=== PATIENT | male | born 1945 | race Caucasian/White ===

== ENCOUNTER 2017-09-10 08:17 | Outpatient (CLI) | payer MEDICARE, OTHER ==
--- NOTE | 2017-09-10 12:40 | MRI ---
MRI BRAIN AND INTERNAL AUDITORY CANALS WITH AND WITHOUT CONTRAST: DATE: 09/10/2017 HISTORY: A 71-year-old female. 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 COMPARISON: 08/21/2016 TECHNIQUE: Multiple sequences obtained in axial, sagittal, and coronal planes; both whole brain images and thin slices through the IAC's, pre and post IV injection of gadolinium-based contrast agent: MultiHance 1 3 mL. FINDINGS: The heterogeneously enhancing ice [id number] shaped extraaxial mass at the left cerebellopontine a ngle, extending into the left internal auditory canal, has not significantly changed in size. Measur ements are approximately 1.8 x 1.3 x 1.2 cm. Allowing for slight differences in cursor placement, th ere has been no major interval change in the size of this mass. Incidentally, the superior aspect of the left-sided CPA mass abuts and mildly superiorly displaces th e cisternal segment of the left trigeminal (5th cranial) nerve, including at its root entry zone at t he felipe. The lateral and third ventricles are mildly enlarged on an ex vacuo basis, due to central parenchymal volume loss. There are mild chronic ischemic white matter changes. No intraaxial acute hemorrhage, large cortical infarction, restricted diffusion, midline shift, or extraaxial fluid collection. The re is a new finding of air-fluid levels in the bilateral maxillary sinuses, in addition to mucosal th ickening of the maxillary, ethmoid, sphenoid, and frontal sinuses. The partial opacification of the bilateral ethmoid air cells is most prominent. IMPRESSION: 1. No significant interval change in the left sided vestibular schwannoma (acoustic neuroma). 2. 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 3. Paranasal sinus mucosal disease. RIVAS Malik POS: [place]
[2017-09-10] MEDS ORDERED: Gadobenate Dimeglumine 529 MG/1 ML (20ML VIAL) ONE (16:13)
== END 2017-09-10 08:18 | disposition home or self-care (01) ==
LOC: MRI 08:17
PROVIDERS: ATTEND Radiology Radiation Oncology
DX: D33.3 Benign neoplasm of cranial nerves (principal); J32.9 Chronic sinusitis, unspecified
CPT/HCPCS: 70553; 82565; A9579